=== PATIENT | male | born 1945 | race Caucasian/White ===

== ENCOUNTER 2018-07-31 19:32 | Observation (INO) | payer MEDICARE, BC ==
[~2018-07-31] VITALS: Ht 172.7 cm; Wt 92.7 kg
[2018-07-31] MEDS ORDERED: LEXAPRO10 MG PO (19:50)
[2018-07-31] MEDS ORDERED: PROSCAR5 MG PO (19:50)
[2018-07-31] MEDS ORDERED: BAYER CHEWABLE81 MG PO (19:51)
[2018-07-31] MEDS ORDERED: PLAVIX75 MG PO (19:51)
[2018-07-31] MEDS ORDERED: CO Q-10100 MG PO (19:51)
[2018-07-31] MEDS ORDERED: KRILL OIL 1,001 EAC1 PO (19:51)
[2018-07-31] MEDS ORDERED: LISINOPRIL20 MG (19:51)
[2018-07-31] MEDS ORDERED: UROCIT-K10 MEQ PO (19:52)
[2018-07-31 20:25] LABS: BASOPHILS 0.9 % (0-2); EOSINOPHILS 3.3 % (0-7); HEMATOCRIT 47.1 % (42.0-54.0); HEMOGLOBIN 16.2 g/dL (13.5-17.5); IMMATURE GRANULOCYTES 0.3 % (0-5); LYMPHOCYTES 34.6 % (15-50); MCH 29.2 pg (26.0-34.0); MCHC 34.4 g/dL (31.0-37.0); MCV 84.9 fL (80.0-100.0); MEAN PLATELET VOLUME 9.3 fL (7.4-10.4); MONOCYTES 8.3 % (2-11); NEUTROPHILS 52.6 % (40-80); PLATELET COUNT 230 10x3/uL (130-400); RBC 5.55 10x6/uL (4.20-6.10); WBC 7.9 10x3/uL (4.8-10.8)
[2018-07-31 20:52] LABS: ALBUMIN 3.7 g/dL (3.4-5.0); ALKALINE PHOSPHATASE 72 U/L (46-116); ALT (SGPT) 36 U/L (10-68); BILIRUBIN - TOTAL 1.26 mg/dL (0.2-1.3); CALC OSMOLALITY 278 mosm/kg (275-300); CALCIUM 8.9 mg/dL (8.5-10.1); CHLORIDE - SERUM 104 mmol/L (98-107); GLUCOSE 103 mg/dL (74-106); POTASSIUM - SERUM 4.3 mmol/L (3.5-5.1); PROTEIN - SERUM 7.1 g/dL (6.4-8.2); SODIUM 139 mmol/L (136-145); UREA NITROGEN 16 mg/dL (7-18); eGFR NON AFRICAN AMERICAN 78 mL/min (90-120)
[2018-07-31 20:59] LABS: CREATINE KINASE 51 UL (21-232); PRO BNP 30 pg/mL (0-125)
[2018-07-31 21:02] LABS: TROPONIN-I < 0.017 ng/mL (0.000-0.060)
[2018-07-31 23:15] VITALS: BP 136/62
[2018-07-31 23:53] LABS: ERYTHROCYTE SEDIMENTATION RATE 3 mm/hr (0-20)
[2018-07-31 23:55] VITALS: BP 136/75
--- NOTE | 2018-07-31 23:55 | NUR ---
RECEIVED REPORT FROM ER, PT IS A&O, IV-LFA, FAMILY AT BEDSIDE, BED IS LOW, SRX2, CALL LIGHT IN REACH, WILL CONTINUE PLAN OF CARE, ORDER FOR TELEMTRY-NOT ONE AVAILABLE AT THIS TIME
[2018-08-01 03:55] VITALS: BP 115/80
--- NOTE | 2018-08-01 04:44 | NUR ---
ADMISSION ASSESSMENT COMPLETED. PT RESTING IN BED WITH NO DISTRESS. PLAN OF CARE INITIATED.
--- NOTE | 2018-08-01 07:00 | NUR ---
RECEIVED BEDSIDE SHIFT REPORT. ASSUMED CARE OF PATIENT. PATIENT ASSISTED OOB TO RESTROOM BY OFF GOING NURSE AT THIS TIME AND ASSISTED BACK TO BED. LYING IN BED WITH EYES OPEN. DENIES NEEDS AT THIS TIME. NO DISTRESS.
--- NOTE | 2018-08-01 07:35 | NUR ---
PATIENTS SON CALLED TO CHECK ON HIM. CALL TRANSFERRED TO PATIENT ROOM. FRESH ICE WATER PROVIDED.
[2018-08-01 07:39] VITALS: BP 115/80; Ht 172.7 cm; Wt 92.7 kg
[2018-08-01 08:50] VITALS: BP 140/90
--- NOTE | 2018-08-01 09:30 | NUR ---
PATIENT SITTING IN BED. FAMILY AT BEDSIDE. PATIENT STATES HE FEELS GOOD, NO PAIN. PATIENT STILL QUESTIONING WHAT WAS CAUSING ALL OF HIS PAIN LAST NIGHT AND WONDERING SINCE HE FEELS BETTER WILL HE GET TO GO HOME TODAY. EXPLAINED TO PATIENT WE ARE WAITING ON THE ATTENDING PHYSICIAN TO SEE PATIENT TO MAKE THAT DECISION. FRESH ICE WATER PROVIDED.
--- NOTE | 2018-08-01 11:15 | NUR ---
CHECKED ON PATIENT. PATIENT READING THE PAPER. FRESH COFFEE AND ICE WATER PROVIDED. CALL LIGHT WITHIN REACH. DENIES PAIN. NO DISTRESS.
[2018-08-01 12:21] VITALS: BP 152/82
[2018-08-01 15:48] VITALS: BP 132/77
--- NOTE | 2018-08-01 18:34 | NUR ---
ALERT AND ORIENTED X4. SITTING UP IN BED. FAMILY AT BEDSIDE. DISCHARGE INSTRUCTIONS GIVEN VERBALLY AND WRITTEN. DISCHARGE PAPERS SIGNED ON CHART. DC LT AC IV TIP INTACT. ESCORT TO RIDE VIA WHEELCHAIR. REMAINS FREE FROM INJURY.
--- NOTE | 2018-08-04 09:04 | MORECARE ---
CASE MANAGEMENT DISCHARGE SUMMARY PATIENT: GORGE BUTLER UNIT: [id number] ADM DATE: 07/31/18 AGE: 73 : 49 SEX: M ROOM/BED: D.2112 AUTHOR: NOBLE GAITAN PHYSICIAN: REFERRING PHYSICIAN: GENARO SOLANO MD DATE OF SERVICE: 08/04/18 Discharge Plan Patient Name: GORGE BUTLER Facility: [facility]:[place] : 1945 Planned Disposition: Home Anticipated Discharge Date: 08/01/18 Discharge Date: 08/01/2018 Expected LOS: 1 Initial Reviewer: [email or web address] Initial Review Date: 08/04/2018 Generated: 08/04/18 10:04 am Patient Name: GORGE BUTLER Page [phone] at 0904 All edits/amendments must be made on the electronic document DICTATION DATE: 08/04/18902 MERCURY WASHER: GLENNA 08/04/18902 RPT#: [id number] DC DATE:08/01/18 STATUS: DIS IN [facility] [address] [place] [address] END OF REPORT
== END 2018-08-01 18:36 | disposition home or self-care (01) ==
LOC: D.ER 19:32 → OBSVTIME 23:01 → D.EDHOLD 23:01 → D.M2 23:20
PROVIDERS: Family Medicine; ADMIT Family Medicine Adult Medicine
DX: R52 Pain, unspecified (principal); J18.9 Pneumonia, unspecified organism; I10 Essential (primary) hypertension; I25.10 Atherosclerotic heart disease of native coronary artery without angina pectoris; M19.90 Unspecified osteoarthritis, unspecified site; N40.0 Benign prostatic hyperplasia without lower urinary tract symptoms; R91.8 Other nonspecific abnormal finding of lung field